=== PATIENT | female | born 1970 | race Caucasian/White ===

== ENCOUNTER 2016-12-25 09:03 | Outpatient (CLI) | payer OTHER | END 2016-12-25 09:04 | disposition home or self-care (01) | DX: Z00.00 Encounter for general adult medical examination without abnormal findings (principal); H81.10 Benign paroxysmal vertigo, unspecified ear; E78.1 Pure hyperglyceridemia ==

== ENCOUNTER 2018-11-03 08:19 | Outpatient (CLI) | payer OTHER ==
--- NOTE | 2018-11-04 09:03 | Mammography Report ---
Reason: ANNUAL SCREENING Procedure Date: 11/03/2018 Accession Number: [id number] / [id number] Procedure: JO - Screening Mammo w/Dani CPT Code: FULL RESULT: EXAM: Screening Mammo w/Dani DATE: 11/03/2018 8:47 AM CLINICAL HISTORY: Screening encounter. Reported family history of breast cancer in the great grandmother. TECHNIQUE: Bilateral CC, laterally exaggerated CC, MLO views were obtained. COMPARISON: 03/17/2016 through 12/23/2012. FINDINGS: The breasts demonstrate diffuse fatty replacement bilaterally. No suspicious masses, clustered microcalcifications, or regions of architectural distortion are identified. IMPRESSION: Negative examination RECOMMENDATION: Routine annual screening unless otherwise clinically indicated. BIRADS CATEGORY 1: Negative STANDARD QUALIFYING STATEMENTS: 1. This examination was not reviewed with the aid of Computer-Aided Detection (CAD). 2. A negative or benign imaging report should not preclude biopsy if clinically suspicious findings are present. 3. Dense breasts may obscure an underlying neoplasm. 4. This examination was reviewed with the aid of 3D breast imaging (tomosynthesis).
== END 2018-11-03 08:20 | disposition home or self-care (01) ==
LOC: DI 08:19
DX: Z12.31 Encounter for screening mammogram for malignant neoplasm of breast (principal); Z80.3 Family history of malignant neoplasm of breast
CPT/HCPCS: 77063; 77067

== ENCOUNTER 2020-06-21 20:26 | Emergency (ER) | payer OTHER, MEDICAID ==
--- NOTE | 2020-06-21 21:29 | ED Physician Documentation ---
History of Present Illness - Stated complaint Stated Complaint: GLF/HEAD PX/SHOULDER PX - Chief complaint Chief Complaint: Trauma Hd/Nk - History obtained from History obtained from: Patient - Additonal information Additional information: Patient is a 49-year-old female presents with a chief complaint of right shoulder pain as well is had pain after she fell earlier while she suffered a mechanical fall while walking up the stairs she did bump her forehead and is complaining of right shoulder pain she is right-hand dominant she denies taking any anticoagulants or antiplatelets or any blood thinners. Otherwise denies any other complaints denies loss of consciousness denies neck pain. Review of Systems Constitutional: reports: Reviewed and negative Eyes: reports: Reviewed and negative Ears: reports: Reviewed and negative Nose: reports: Reviewed and negative Throat: reports: Reviewed and negative Cardiac: reports: Reviewed and negative Respiratory: reports: Reviewed and negative GI: reports: Reviewed and negative : reports: Reviewed and negative Skin: reports: Reviewed and negative Musculoskeletal: reports: Joint pain Neurologic: reports: Head injury Psychiatric: reports: Reviewed and negative Endocrine: reports: Reviewed and negative Immunocompromised: reports: Reviewed and negative PD PAST MEDICAL HISTORY - Past Medical History Past Medical History: No - Past Surgical History Past Surgical History: Yes General: Cholecystectomy - Allergies Allergies/Adverse Reactions: Allergies Allergy/AdvReac Type Severity Reaction Status Date / Time No Known Drug Allergies Allergy Verified 06/21/20 20:34 - Social History Does the pt smoke?: No Smoking Status: Never smoker Does the pt drink ETOH?: No Does the pt have substance abuse?: No - Immunizations Immunizations are current?: Yes - POLST Patient has POLST: No PD ED PE NORMAL - Vitals Vital signs reviewed: Yes - General General: Alert and oriented X 3, No acute distress, Well developed/nourished - HEENT HEENT: PERRL, Moist mucous membranes, Other (There is a 1 x 1 cm forehead hematoma with ecchymosis. There is no skull depressions or deformities no hemotympanum bilaterally no septal hematoma no acute missing teeth no raccoon eyes no catalan sign.) - Neck Neck: Supple, no meningeal sign, Other (No midline tenderness palpation to the cervical spine) - Cardiac Cardiac: RRR, No murmur - Respiratory Respiratory: Clear bilaterally - Abdomen Abdomen: Normal bowel sounds, Soft, Non tender, Non distended - Derm Derm: Warm and dry - Extremities Extremities: No deformity, Other (Tenderness to the right shoulder and right AC joint. 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 This can the heads negative plain films of the right shoulder and clavicle are negative as well. Patient updated and given an ice pack she should follow-up with a primary care provider on Wednesday or return emergency department any concerns. Departure - Departure Disposition: 01 Home, Self Care Clinical Impression: Forehead contusion Qualifiers: Encounter type: initial encounter Qualified Code(s): S00.83XA - Contusion of other part of head, initial encounter Right shoulder strain Qualifiers: Encounter type: initial encounter Qualified Code(s): S46.911A - Strain of unspecified muscle, fascia and tendon at shoulder and upper arm level, right arm, initial encounter Condition: Stable Instructions: ED Contusion Scalp, ED Sprain Shoulder Follow-Up: Jose E Gamboa DO [Primary Care Provider] - Tomorrow Comments: With your primary care provider on Wednesday. Use ice as needed may take [id number]-sxy-[id number] medication such as Tylenol or ibuprofen as needed. Discharge Date/Time: 06/21/20 23:18
[2020-06-21 23:11] VITALS: BP 141/76
--- NOTE | 2020-06-22 07:44 | CT Report ---
PROCEDURE: HEAD WO INDICATIONS: fall head injury TECHNIQUE: Noncontrast 4.5 mm thick angled axial sections acquired from the foramen magnum to the vertex. For r adiation dose reduction, the following was used: automated exposure control, adjustment of mA and/or kV according to patient size. COMPARISON: None. FINDINGS: Image quality: Excellent. CSF spaces: Basal cisterns are patent. No extra-axial fluid collections. Ventricles are normal in size and shape. Brain: No midline shift. No intracranial masses or hemorrhage. Reeves-white matter interface is norm al. Skull and face: Small left anterior frontal scalp hematoma. Calvarium and visualized facial bones ar e intact, without suspicious lesions. Sinuses: Visualized sinuses and mastoids are clear. IMPRESSION: 1. No evidence of significant intracranial sequelae of acute trauma. 2. No evidence acute stroke, hemorrhage, or mass. A preliminary report with the above findings was provided at the time of the study by [facility]. Reviewed by: Jason Hughes MD on 06/22/2020 7:43 AM PDT Approved by: Jason Hughes MD on 06/22/2020 7:43 AM PDT Station ID: [id number]
--- NOTE | 2020-06-22 10:52 | XRAY Report ---
PROCEDURE: Shoulder 2 View RT INDICATIONS: shoulder pain fall TECHNIQUE: 2 views of the shoulder were acquired. COMPARISON: None. FINDINGS: Bones: No fractures or dislocations. No suspicious bony lesions. Visualized ribs appear intact. Soft tissues: No suspicious soft tissue calcifications. IMPRESSION: No evidence acute bony abnormality of the right shoulder. A preliminary report with the above findings was provided at the time of the study by [facility]. Reviewed by: Jason Hughes MD on 06/22/2020 10:51 AM PDT Approved by: Jason Hughes MD on 06/22/2020 10:51 AM PDT Station ID: [id number]
--- NOTE | 2020-06-22 10:52 | XRAY Report ---
PROCEDURE: Clavicle RT INDICATIONS: fall right clavicle pain TECHNIQUE: 2 views of the clavicle were acquired. COMPARISON: None. FINDINGS: Bones: No fractures or dislocations. No suspicious bony lesions. Soft tissues: No suspicious soft tissue calcifications. IMPRESSION: No evidence acute bony abnormality of the right clavicle. A preliminary report with the above findings was provided at the time of the study by [facility]. Reviewed by: Jason Hughes MD on 06/22/2020 10:50 AM PDT Approved by: Jason Hughes MD on 06/22/2020 10:50 AM PDT Station ID: [id number]
== END 2020-06-21 23:18 | disposition home or self-care (01) ==
LOC: ED 20:26
DX: S46.911A Strain of unspecified muscle, fascia and tendon at shoulder and upper arm level, right arm, initial encounter (principal); S00.83XA Contusion of other part of head, initial encounter; W10.9XXA Fall (on) (from) unspecified stairs and steps, initial encounter; Y93.01 Activity, walking, marching and hiking
CPT/HCPCS: 70450; 99282; 99284

== ENCOUNTER 2020-12-09 08:00 | Outpatient (CLI) | payer OTHER, MEDICAID ==
[2020-12-09 12:04] LABS: BASOPHILS % (AUTO) 0.7 %; EOSINOPHILS # (AUTO) 0.2 10^3/uL (0.0-0.7); EOSINOPHILS % (AUTO) 2.7 %; HGB - HEMOGLOBIN 14.1 g/dL (12.0-16.0); LYMPHOCYTES # (AUTO) 2.1 10^3/uL (1.5-3.5); LYMPHOCYTES % (AUTO) 35.5 %; MEAN CORPUSCULAR HEMOGLOBIN 29.1 pg (27.0-31.0); MEAN CORPUSCULAR HGB CONC 31.8 g/dL (32.0-36.0); MEAN CORPUSCULAR VOLUME 91.7 fL (81.0-99.0); MEAN PLATELET VOLUME 10.4 fL (7.9-10.8); MONOCYTES # (AUTO) 0.4 10^3/uL (0.0-1.0); MONOCYTES % (AUTO) 7.1 %; NEUTROPHILS # (AUTO) 3.2 10^3/uL (1.5-6.6); NEUTROPHILS % (AUTO) 53.8 %; PLT - PLATELET COUNT 248 10^3/uL (130-450); RED BLOOD COUNT 4.84 10^6/uL (4.20-5.40); WHITE BLOOD COUNT 5.9 x10^3/uL (4.8-10.8)
[2020-12-09 12:39] LABS: ALBUMIN/GLOBULIN RATIO 1.1 (1.0-2.2); ALKALINE PHOSPHATASE 71 IU/L (42-121); ALT ALANINE AMINOTRANSFERASE 25 IU/L (10-60); AST ASPARTATE AMINOTRANSFERASE 26 IU/L (10-42); BILIRUBIN,TOTAL 0.4 mg/dL (0.2-1.0); BUN - BLOOD UREA NITROGEN 12 mg/dL (6-20); CALCIUM 9.4 mg/dL (8.5-10.3); CARBON DIOXIDE - CO2 27 mmol/L (21-32); CHLORIDE 102 mmol/L (101-111); CHOL/HDL RATIO 3.4 (<4.4); CHOLESTEROL 178 mg/dL; CREATININE 0.9 mg/dL (0.4-1.0); GLUCOSE 107 mg/dL (70-100); HDL CHOLESTEROL 52 mg/dL; LDL CHOLESTEROL,CALCULATED 96 mg/dL; LDL/HDL RATIO 1.8 (<4.4); TOTAL PROTEIN 7.7 g/dL (6.7-8.2); VLDL CHOLESTEROL 30 mg/dL
[2020-12-09 12:40] LABS: HEMOGLOBIN A1c% 5.2 % (4.27-6.07)
== END 2020-12-09 23:59 | disposition home or self-care (01) ==
LOC: LAB.WCP 08:00
PROVIDERS: ATTEND Family Medicine
DX: Z00.00 Encounter for general adult medical examination without abnormal findings (principal); E66.9 Obesity, unspecified
CPT/HCPCS: 36415; 80050; 80061; 83036; 83721

== ENCOUNTER 2020-12-31 08:33 | Outpatient (CLI) | payer OTHER, MEDICAID ==
--- NOTE | 2020-12-31 12:45 | Mammography Report ---
BILATERAL DIGITAL SCREENING MAMMOGRAM 3D/2D: 12/31/2020 CLINICAL: Routine screening. Comparison is made to exams dated: 11/03/2018 mammogram, 03/17/2016 mammogram, 06/28/2014 mammogram, a nd 12/23/2012 mammogram - [facility]. The tissue of both breasts is heterogeneously dense. This may lower the sensitivity of mammography. No significant masses, calcifications, or other findings are seen in either breast. There has been no significant interval change. IMPRESSION: NEGATIVE There is no mammographic evidence of malignancy. A 1 year screening mammogram is recommended. This exam was interpreted at Station ID: [id number]. NOTE: For mammograms, a report in lay terms will be sent to the patient. Approximately 15% of breast malignancies will not be visualized mammographically. In the management of a palpable breast mass, a negative mammogram must not discourage biopsy of a clinically suspicious lesion. Electronically Signed By: Suleiman Gottlieb acr/penrad:12/31/2020 10:00:39 ACR BI-RADS Category 1: Negative 3341F PARENCHYMAL PATTERN: (D) - The breast(s) demonstrate(s) heterogeneously dense fibroglandular parshelliy ma. BI-RADS CATEGORY: (1) - 1 RECOMMENDATION: (ANNUAL) - Recommend routine annual screening mammography. [id number] 1 year screening LATERALITY: (B)
== END 2020-12-31 08:34 | disposition home or self-care (01) ==
LOC: DI.N 08:33
DX: Z12.31 Encounter for screening mammogram for malignant neoplasm of breast (principal)

== ENCOUNTER 2022-09-10 08:20 | Outpatient (CLI) | payer OTHER, MEDICAID ==
[2022-09-10 12:34] LABS: BASOPHILS % (AUTO) 0.7 %; EOSINOPHILS % (AUTO) 2.3 %; HGB - HEMOGLOBIN 14.2 g/dL (12.0-16.0); LYMPHOCYTES # (AUTO) 1.9 10^3/uL (1.5-3.5); LYMPHOCYTES % (AUTO) 31.6 %; MEAN CORPUSCULAR HEMOGLOBIN 29.6 pg (27.0-31.0); MEAN CORPUSCULAR HGB CONC 32.3 g/dL (32.0-36.0); MEAN CORPUSCULAR VOLUME 91.9 fL (81.0-99.0); MEAN PLATELET VOLUME 10.8 fL (7.9-10.8); MONOCYTES # (AUTO) 0.5 10^3/uL (0.0-1.0); MONOCYTES % (AUTO) 7.4 %; NEUTROPHILS # (AUTO) 3.5 10^3/uL (1.5-6.6); NEUTROPHILS % (AUTO) 57.7 %; PLT - PLATELET COUNT 264 10^3/uL (130-450); RED BLOOD COUNT 4.79 10^6/uL (4.20-5.40); RED CELL DISTRIBUTION WIDTH 13.2 % (12.0-15.0); WHITE BLOOD COUNT 6.1 x10^3/uL (4.8-10.8)
[2022-09-10 12:35] LABS: EOSINOPHILS # (AUTO) 0.1 10^3/uL (0.0-0.7)
[2022-09-10 13:06] LABS: ALBUMIN 4.1 g/dL (3.2-5.5); ALBUMIN/GLOBULIN RATIO 1.2 (1.0-2.2); ALKALINE PHOSPHATASE 70 IU/L (42-121); ALT ALANINE AMINOTRANSFERASE 23 IU/L (10-60); AST ASPARTATE AMINOTRANSFERASE 25 IU/L (10-42); BILIRUBIN,TOTAL 0.5 mg/dL (0.2-1.0); BUN - BLOOD UREA NITROGEN 18 mg/dL (6-20); CALCIUM 9.5 mg/dL (8.5-10.3); CARBON DIOXIDE - CO2 30 mmol/L (21-32); CHLORIDE 103 mmol/L (101-111); CHOL/HDL RATIO 3.7 (<4.4); CHOLESTEROL 177 mg/dL; GFR - MDRD 59 (>89); GLUCOSE 102 mg/dL (70-100); HDL CHOLESTEROL 48 mg/dL; LDL CHOLESTEROL,CALCULATED 101 mg/dL; LDL/HDL RATIO 2.1 (<4.4); POTASSIUM 4.2 mmol/L (3.5-5.0); SODIUM 140 mmol/L (135-145); TOTAL PROTEIN 7.5 g/dL (6.7-8.2); TRIGLYCERIDES 138 mg/dL; VLDL CHOLESTEROL 28 mg/dL
[2022-09-10 13:15] LABS: THYROID STIMULATING HORMONE 2.77 uIU/mL (0.34-5.60)
[2022-09-10 13:16] LABS: ESTIMATED AVERAGE GLUCOSE 108 mg/dL (70-100); HEMOGLOBIN A1c% 5.4 % (4.27-6.07)
== END 2022-09-10 08:21 | disposition home or self-care (01) ==
LOC: LAB.N 08:20
PROVIDERS: ATTEND Nurse Practitioner Family
DX: Z00.00 Encounter for general adult medical examination without abnormal findings (principal); E78.1 Pure hyperglyceridemia; E55.9 Vitamin D deficiency, unspecified; Z78.0 Asymptomatic menopausal state; R73.01 Impaired fasting glucose
CPT/HCPCS: 36415; 80050; 80061; 82306; 83036; 83721

== ENCOUNTER 2023-08-28 09:50 | Outpatient (CLI) | payer BC, OTHER ==
[2023-08-28 19:42] LABS: ALBUMIN 4.2 g/dL (3.2-5.5); ALBUMIN/GLOBULIN RATIO 1.3 (1.0-2.2); BILIRUBIN,TOTAL 0.4 mg/dL (0.2-1.0); CALCIUM 9.6 mg/dL (8.5-10.3); CREATININE 0.9 mg/dL (0.6-1.3); POTASSIUM 4.6 mmol/L (3.5-4.5); TOTAL PROTEIN 7.4 g/dL (6.4-8.9)
[2023-08-28 20:46] LABS: ESTIMATED AVERAGE GLUCOSE 97 mg/dL (70-100)
== END 2023-08-28 09:51 | disposition home or self-care (01) ==
LOC: LAB.N 09:50
PROVIDERS: ATTEND Nurse Practitioner Family
DX: Z51.81 Encounter for therapeutic drug level monitoring (principal); E66.01 Morbid (severe) obesity due to excess calories; Z79.899 Other long term (current) drug therapy
CPT/HCPCS: 36415; 80053; 83036